=== PATIENT | female | born 1985 | race Caucasian/White ===

== ENCOUNTER 2020-10-18 16:09 | Emergency (ER) | payer SELFPAY ==
[2020-10-18 17:48] LABS: Absolute Lymphocytes (CBC) 3.6 K/uL (0.7-4.9); Basophils % 0.5 % (0-1.3); Hematocrit 40.1 % (36.0-45.0); Lymphocytes % 44.7 % (15.3-44.8); MPV 8.2 fL (7.6-11.3)
--- NOTE | 2020-10-18 18:00 | EDPHYS ---
Physician Documentation [facility] Name: Daisy Munguia Age: 35 yrs Sex: Female : 1985 Arrival Date: 10/18/2020 Time: 16:10 Bed 17 Private MD: ED Physician Nathan Rosales HPI: 10/18 17:53 This 35 yrs old Female presents to ER via Ambulatory with complaints of Psych elmer Problem. 17:53 The patient presents to the emergency department with depression. Onset: The elmer symptoms/episode began/occurred 1 week(s) ago. Past psychiatric history: Prior diagnosis: depression, schizophrenia, Psychiatric medications include: see list. Associated signs and symptoms: Pertinent positives; hallucinations, paranoia, suicide ideation. Severity of symptoms: At their worst the symptoms were mild moderate in the emergency department the symptoms are unchanged. The patient has experienced similar episodes in the past. 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 - Social history:: Smoking status: Patient reports the use of cigarette tobacco products, Reported history of juuling and/or vaping. - Family history:: not pertinent. ROS: 17:53 Constitutional: Negative for fever, chills, and weight loss, Eyes: Negative for injury, elmer pain, redness, and discharge, ENT: Negative for injury, pain, and discharge, Neck: Negative for injury, pain, and swelling, Cardiovascular: Negative for chest pain, palpitations, and edema, Respiratory: Negative for shortness of breath, cough, wheezing, and pleuritic chest pain, Abdomen/GI: Negative for abdominal pain, nausea, vomiting, diarrhea, and constipation, Back: Negative for injury and pain, : Negative for injury, bleeding, discharge, and swelling, MS/Extremity: Negative for injury and deformity, Skin: Negative for injury, rash, and discoloration, Neuro: Negative for headache, weakness, numbness, tingling, and seizure, Allergy/Immunology: Negative for hives, rash, and allergies, Endocrine: Negative for neck swelling, polydipsia, polyuria, polyphagia, and marked weight changes. 17:53 Psych: Positive for depression, auditory hallucinations, suicidal ideation. Exam: 17:53 Constitutional: This is a well developed, well nourished patient who is awake, alert, elmer and in no acute distress. Head/Face: Normocephalic, atraumatic. Eyes: Pupils equal round and reactive to light, extra-ocular motions intact. Lids and lashes normal. Conjunctiva and sclera are non-icteric and not injected. Cornea within normal limits. Periorbital areas with no swelling, redness, or edema. ENT: Nares patent. No nasal discharge, no septal abnormalities noted. Tympanic membranes are normal and external auditory canals are clear. Oropharynx with no redness, swelling, or masses, exudates, or evidence of obstruction, uvula midline. Mucous membranes moist. Neck: Trachea midline, no thyromegaly or masses palpated, and no cervical lymphadenopathy. Supple, full range of motion without nuchal rigidity, or vertebral point tenderness. No Meningismus. Chest/axilla: Normal chest wall appearance and motion. Nontender with no deformity. No lesions are appreciated. Respiratory: Lungs have equal breath sounds bilaterally, clear to auscultation and percussion. No rales, rhonchi or wheezes noted. No increased work of breathing, no retractions or nasal flaring. Abdomen/GI: Soft, non-tender, with normal bowel sounds. No distension or tympany. No guarding or rebound. No evidence of tenderness throughout. Back: No spinal tenderness. No costovertebral tenderness. Full range of motion. Skin: Warm, dry with normal turgor. Normal color with no rashes, no lesions, and no evidence of cellulitis. MS/ Extremity: Pulses equal, no cyanosis. Neurovascular intact. Full, normal range of motion. Neuro: Awake and alert, GCS 15, oriented to person, place, time, and situation. Cranial nerves II-XII grossly intact. Motor strength 5/5 in all extremities. Sensory grossly intact. Cerebellar exam normal. Normal gait. Psych: Awake, alert, with orientation to person, place and time. Behavior, mood, and affect are within normal limits. 17:53 Cardiovascular: Rate: tachycardic, actual rate is 102 bpm, Rhythm: regular, Pulses: Pulses are 4+ in bilateral radial, brachial, femoral, popliteal, posterior tibial and and dorsalis pedis arteries.. Heart sounds: normal, Edema: is not appreciated, JVD: is not appreciated. 17:53 Psych: Behavior/mood is pleasant, cooperative, Affect is calm, Oriented to person, place, time, Patient has no thoughts/intents to harm self or others. Judgement / Insight is normal. Memory is normal. Delusions/hallucinations are not present. 18:25 ECG was reviewed by the Attending Physician. [facility] Vital Signs: 16:34 BP 144 / 106; Pulse 102; Resp 19; Temp 98.8; Pulse Ox 98% on R/A; Weight 126.1 kg; jl7 18:30 BP 120 / 86; Pulse 77; Resp 16; Temp 98.3; Pulse Ox 98% ; Pain 0/10; vg1 MDM: 16:56 Patient medically screened. [facility] 17:58 Differential diagnosis: acute psychotic break, depression, psychosis secondary to elmer non-compliance. Data reviewed: vital signs, nurses notes, lab test result(s), EKG. Data interpreted: telemetry monitor: rate is 100 beats/min, rhythm is regular, Pulse oximetry: on room air is 98 %. Test interpretation: by ED physician or midlevel provider: ECG. Counseling: I had a detailed discussion with the patient and/or guardian regarding: the historical points, exam findings, and any diagnostic results supporting the discharge/admit diagnosis, lab results, the need to transfer to another facility, for higher level of care, [facility] does not immediately have the required specialist. 10/18 16:57 Order name: Acetaminophen; Complete Time: 19:19 elmer 10/18 16:57 Order name: Basic Metabolic Panel; Complete Time: 19:19 [facility] 10/18 16:57 Order name: CBC with Diff; Complete Time: 19:19 [facility] 10/18 16:57 Order name: ETOH Level; Complete Time: 19:19 [facility] 10/18 16:57 Order name: Hepatic Function; Complete Time: 19:19 [facility] 10/18 16:57 Order name: PT-INR; Complete Time: 19:19 [facility] 10/18 16:57 Order name: Ptt, Activated; Complete Time: 19:19 [facility] 10/18 16:57 Order name: Salicylate; Complete Time: 19:19 [facility] 10/18 16:57 Order name: Urine Drug Screen; Complete Time: 07:36 [facility] 10/18 19:19 Order name: Urine Dipstick-Ancillary; Complete Time: 19:23 EDMS 10/18 19:23 Order name: Urine Culture [facility] 10/18 19:26 Order name: Urine --Ancillary (enter results); Complete Time: 07:36 mw2 10/18 21:22 Order name: SARS-COV-2 RT PCR; Complete Time: 07:36 EDMS 07 16:57 Order name: EKG; Complete Time: 16:57 [facility] 10/18 16:57 Order name: EKG - Nurse/Tech; Complete Time: 18:24 [facility] 10/18 16:57 Order name: IV Saline Lock; Complete Time: 17:38 [facility] 10/18 16:57 Order name: Labs collected and sent; Complete Time: 17:38 [facility] 10/18 16:57 Order name: Suicide Precautions; Complete Time: 17:38 [facility] 10/18 16:57 Order name: Suicide Screening ([place]); Complete Time: 17:38 [facility] 10/18 16:57 Order name: Urine Dipstick-Ancillary (obtain specimen); Complete Time: 20:02 [facility] 10/18 16:57 Order name: Urine Test (obtain specimen); Complete Time: 20:02 [facility] 10/19 06:59 Order name: Diet Finger Food; Complete Time: 07:00 jb4 EC:25 Rate is 83 beats/min. Rhythm is regular. QRS [place] is Normal. UT interval is normal. QRS elmer interval is normal. QT interval is normal. No Q waves. T waves are Normal. No ST changes noted. Clinical impression: NSR w/ Non-specific ST/T Changes and No evidence of ischemia. Interpreted by me. Reviewed by me. Administered Medications: 19:02 Drug: NS 0.9% 1000 ml Route: IV; Rate: 1 bolus; Site: left forearm; vg1 20:00 Follow up: Response: No adverse reaction; IV Status: Completed infusion; IV Intake: jl7 1000ml 20:02 Drug: Rocephin (cefTRIAXone) 1 grams Route: IV; Rate: per protocol; Site: left forearm; vg1 20:05 Follow up: Response: No adverse reaction; IV Status: Completed infusion jl7 Disposition Summary: 10/19/20 07:42 Discharge Ordered Location: Home elmer Problem: new(10/19/20 07:42) elmer Symptoms: have improved(10/19/20 07:42) elmer Condition: Stable(10/19/20 07:42) elmer Diagnosis - Schizophrenia, unspecified(10/19/20 07:42) elmer - Suicidal ideations(10/19/20 07:42) elmer - UTI/ Urinary tract infection, site not specified(10/19/20 07:42) elmer Followup: elmer - With: Private Physician - When: 2 - 3 days - Reason: Recheck today's complaints, Continuance of care, Re-evaluation by your physician Followup: elmer - With: Steve Ferrara MD - When: 2 - 3 days - Reason: Recheck today's complaints, Continuance of care, Re-evaluation by your physician Discharge Instructions: - Discharge Summary Sheet elmer - Dysuria elmer - Schizophrenia elmer - Urinary Tract Infection, Adult elmer - Suicidal Feelings: How to Help Yourself elmer Forms: - Medication Reconciliation Form elmer - Thank You Letter elmer - Antibiotic Education elmer - Prescription Opioid Use elmer Prescriptions: - Cipro 250 mg Oral Tablet - take 1 tablet by ORAL route every 12 hours; 14 tablet; Refills: 0, Product elmer Selection Permitted Signatures: Dispatcher [employer] EDNathan Leon MD MD cha Leal, Jahala RN RN jl7 Kaitlin Mora RN RN vg1 Corrections: (The following items were deleted from the chart) 19:24 17:59 to psych [facility] 20:11 19:23 CORONAVIRUS+LAB.BRZ ordered. EDUT EDUT 10/19 07:37 10/18 17:59 Psych Facility [facility] 10/19 07:37 10/18 17:59 Higher level of care [facility] 10/19 07:37 07 17:59 Stable [facility] 10/19 07:10/18 17:59 new [facility] 10/19 07:10/18 17:59 have improved [facility] 10/19 07:10/18 17:59 Schizophrenia, unspecified [facility] 10/19 07:10/18 17:59 Suicidal ideations [facility] 10/19 07:10/18 19:24 to psych [facility] 10/19 07:10/18 19:24 UTI/ Urinary tract infection, site not specified [facility]
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
[2020-10-18 18:07] LABS: Protime INR 0.91
[2020-10-18] MEDS ORDERED: NA CHLORIDE 0.9% 1,000 ML ONE (18:08)
[2020-10-18 18:31] LABS: ALT/SGPT 215 U/L (12-78); AST/SGOT 171 U/L (15-37); Alkaline Phosphatase 112 U/L (45-117); BUN Blood Urea Nitrogen 18 mg/dL (7-18); Bicarbonate 22 mmol/L (21-32); Bilirubin Direct 0.1 mg/dL (0-0.2); Bilirubin Total 0.3 mg/dL (0.2-1.0); Glucose Level 103 mg/dL (74-106); Protein, Total 9.1 g/dL (6.4-8.2); Sodium Level 139 mmol/L (136-145)
[2020-10-18 19:19] LABS: Urine Blood 3+ (Negative); Urine Glucose Negative (Negative); Urine Protein Negative (Negative); Urine pH 6.5 (5.0-7.0)
[2020-10-18 19:56] LABS: Barbiturates NEGATIVE (NEGATIVE); Benzodiazepines NEGATIVE (NEGATIVE); Cocaine NEGATIVE (NEGATIVE); METHAMPHETAM NEGATIVE (NEGATIVE); Methadone NEGATIVE (NEGATIVE); Opiates NEGATIVE (NEGATIVE); Phencyclidine NEGATIVE (NEGATIVE); THC Cannibis NEGATIVE (NEGATIVE)
[2020-10-18] MEDS ORDERED: CEFTRIAXONE/SWI 1gm 1 GM/10 ML SYR ONE (20:12)
[2020-10-19 08:09] VITALS: O2SAT 98
[2020-10-19 08:11] VITALS: BP 120/86; TEMP 98.3
--- NOTE | 2020-10-19 16:11 | EKG ---
Test Date: 2020-10-18 Test Time: 18:11:00 Restaurant Assistant: SONYA MEASUREMENT RESULTS: Intervals: Rate: 83 TX: 118 QRSD: 98 QT: 386 QTc: 453 [place]: P: 70 TX: 118 QRS: 95 T: 62 INTERPRETIVE STATEMENTS: Normal sinus rhythm Rightward axis Borderline ECG No previous ECG available for comparison Electronically Signed On 10-19-20 16:08:37 CDT by Jose Davis
== END 2020-10-19 07:58 | disposition home or self-care (01) ==
LOC: ER 16:09
DX: F20.9 Schizophrenia, unspecified (principal); N39.0 Urinary tract infection, site not specified; F17.210 Nicotine dependence, cigarettes, uncomplicated; Z20.822 Contact with and (suspected) exposure to COVID-19
CPT/HCPCS: 36415; 80048; 80076; 80307; 80320; 80329; 81003; 81025; 85025; 85610; 85730; 87086; 87088; 93005; 96361; 96374; 99284; J0696; J7030; U0003